=== PATIENT | male | born 1990 | race African-American/Black ===

== ENCOUNTER 2017-02-10 09:45 | Emergency (ER) | payer OTHER, MEDICAID ==
[~2017-02-10] VITALS: Ht 172.7 cm; Wt 104.3 kg
[2017-02-10 10:12] LABS: Urine RBC None Seen /hpf (0 - 3)
[2017-02-10 10:19] LABS: Basophils # (auto) 0.1 uL; Eosinophils # (auto) 0.1 uL; Lymphocytes # (auto) 3.1 uL; Mean Platelet Volume 7.6 fL (6.9-10.8); Monocytes # (auto) 0.6 uL; Monocytes % (auto) 7.1 % (0.0-12.0); Neutrophils # (auto) 5.1 uL; Nucleated Red Blood Cells % 0.1 %; Red Cell Distribution Width 14.2 % (11.8-14.3); White Blood Cell 8.9 10^3/uL (4.4-10.8)
[2017-02-10 10:21] LABS: Basophils % (auto) 0.6 % (0.0-2.0); Hematocrit 42.9 % (41.0-53.0); Hemoglobin 14.5 g/dL (13.5-17.5); Lymphocytes % (auto) 34.6 % (10.0-50.0); Mean Corpuscular Hemoglobin 24.4 pg (28.0-32.0); Mean Corpuscular Hgb Conc. 33.7 g/dL (32.0-36.0); Mean Corpuscular Volume 72.6 fL (80.0-100.0); Neutrophils % (auto) 56.7 % (37.0-80.0); Platelet Count (auto) 345 10^3/uL (140-450)
[2017-02-10 10:21] LABS: Urine Bilirubin Negative (Negative); Urine Blood Negative /uL (Negative); Urine Color Yellow (Yellow); Urine Glucose Normal (Normal); Urine Ketone Negative (Negative); Urine Nitrite Negative (Negative); Urine Squamous Epithelial Cell FEW /hpf (<5); Urine Urobilinogen Normal (Negative); Urine pH 7.5 (5.0-8.0)
[2017-02-10 10:34] LABS: Albumin 4.2 g/dL (3.4-5.0); Anion Gap 5 (5-15); Aspartate Aminotransferase 25 U/L (15-37); BUN/Creatinine Ratio 9.9; Blood Urea Nitrogen 8 mg/dL (7-18); Calcium 9.3 mg/dL (8.5-10.1); Carbon Dioxide 26 mmol/L (21-32); Chloride 104 mmol/L (98-107); GFR African American 149 mL/min; GFR Non-African American 123 mL/min; Glucose 96 mg/dL (74-106); Magnesium 2.2 mg/dL (1.6-2.6); Potassium 4.5 mmol/L (3.5-5.1); Sodium 135 mmol/L (136-145)
[2017-02-10 10:39] LABS: Alkaline Phosphatase 85 U/L (45-117); Bilirubin, Total 0.4 mg/dL (0.2-1.0); Total Protein 8.7 g/dL (6.4-8.2)
[2017-02-10 13:00] VITALS: BP 123/81
== END 2017-02-10 13:27 | disposition home or self-care (01) ==
LOC: ER 09:45
DX: R42 Dizziness and giddiness (principal); F17.210 Nicotine dependence, cigarettes, uncomplicated; Z88.1 Allergy status to other antibiotic agents
CPT/HCPCS: 36415; 80053; 81001; 83735; 84484; 85025; 93005

== ENCOUNTER 2020-07-25 10:07 | Emergency (ER) | payer MEDICAID, OTHER ==
[~2020-07-25] VITALS: Ht 170.2 cm; Wt 99.8 kg
[2020-07-25 10:55] VITALS: BP 131/84
== END 2020-07-25 11:26 | disposition home or self-care (01) ==
LOC: ER 10:07
DX: S93.601A Unspecified sprain of right foot, initial encounter (principal); X58.XXXA Exposure to other specified factors, initial encounter; Y93.89 Activity, other specified; Y92.89 Other specified places as the place of occurrence of the external cause; Y99.8 Other external cause status
CPT/HCPCS: 73630

== ENCOUNTER → 2021-11-12 | Outpatient (CLI) | payer MEDICAID ==
[2021-11-12 15:25] LABS: Eosinophils # (auto) 0.4 10 ^3/uL (0-0.8); Mean Corpuscular Hgb Conc. 32.8 g/dL (32.0-36.0); Neutrophils # (auto) 3.1 10 ^3/uL (1.6-8.6); Nucleated Red Blood Cells % 0.1 %; White Blood Cell 7.3 10^3/uL (4.4-10.8)
[2021-11-12 15:27] LABS: Basophils # (auto) 0 10 ^3/uL (0-0.2); Basophils % (auto) 0.5 % (0.0-2.0); Eosinophils % (auto) 5.4 % (0.0-7.0); Hematocrit 41.7 % (41.0-53.0); Hemoglobin 13.7 g/dL (13.5-17.5); Lymphocytes # (auto) 3.2 10 ^3/uL (0.4-5.4); Lymphocytes % (auto) 44.3 % (10.0-50.0); Mean Corpuscular Hemoglobin 24.6 pg (28.0-32.0); Monocytes # (auto) 0.5 10 ^3/uL (0-1.3); Monocytes % (auto) 7.1 % (0.0-12.0); Neutrophils % (auto) 42.7 % (37.0-80.0); Red Blood Cells 5.56 10^6/uL (4.5-5.90); Red Cell Distribution Width 13.8 % (11.8-14.3)
[2021-11-12 16:31] LABS: BUN/Creatinine Ratio 8.1; Calcium 8.4 mg/dL (8.5-10.1); Potassium 3.8 mmol/L (3.5-5.1)
[2021-11-12 16:34] LABS: Bilirubin, Total 0.2 mg/dL (0.2-1.0)
[2021-11-13 06:06] LABS: RPR Non Reactive (Non Reactive)
== END | disposition home or self-care (01) ==
LOC: LAB 14:24
PROVIDERS: ATTEND Nurse Practitioner Family
DX: Z00.00 Encounter for general adult medical examination without abnormal findings (principal); R63.4 Abnormal weight loss; E78.00 Pure hypercholesterolemia, unspecified
CPT/HCPCS: 36415; 80053; 80061; 84439; 84443; 85025; 86592; 86695; 86696; 86703; 86705; 86709; 86803; 87340

== ENCOUNTER 2022-01-08 09:47 | Emergency (ER) | payer MEDICAID ==
[~2022-01-08] VITALS: Ht 157.5 cm; Wt 86.7 kg
[2022-01-08 12:13] VITALS: BP 128/77
[2022-01-08] MEDS ORDERED: PROM1SOL4 PO (13:19)
[2022-01-08] MEDS ORDERED: IBUP800T26 PO (13:19)
[2022-01-08] MEDS ORDERED: MONT-8 PO (13:19)
== END 2022-01-08 13:19 | disposition home or self-care (01) ==
LOC: ER 09:47
DX: B34.9 Viral infection, unspecified (principal); F17.210 Nicotine dependence, cigarettes, uncomplicated; F12.10 Cannabis abuse, uncomplicated; Z88.2 Allergy status to sulfonamides; Z20.822 Contact with and (suspected) exposure to COVID-19
CPT/HCPCS: 36415; 87426